=== PATIENT | male | born 1985 | race Caucasian/White ===

== ENCOUNTER → 2018-09-12 | Emergency (ER) | payer OTHER ==
[~2018-09-12] VITALS: Ht 172.7 cm; Wt 63.0 kg
[~2018-09-12] MED LIST: IBUP-1984 PO; LIDO20SO16 PO; NO HOME MEDS; PENI500T2 PO
[2018-09-12 10:50] VITALS: BP 126/90
== END | disposition home or self-care (01) ==
LOC: ER 10:37
DX: J02.0 Streptococcal pharyngitis (principal)
CPT/HCPCS: 99283

== ENCOUNTER 2021-10-01 11:34 | Emergency (ER) | payer SELFPAY ==
[~2021-10-01] VITALS: Ht 172.7 cm; Wt 68.2 kg
[~2021-10-01 11:34] MED LIST changes: -PENI500T2 PO
[2021-10-01 12:09] VITALS: BP 129/85
[2021-10-01] MEDS ORDERED: LIDOcaine 1.5% w/epinephrine 1:200,000 5ml ampul IJ ONE (12:15)
[2021-10-01] MEDS ORDERED: TETanus/Pertussis (Acell)/Diphther VAC/PF (Tdap-Adult) 0.5ml syringe IMVAC ONE (12:15)
[2021-10-01] MEDS ORDERED: lidocaine 1.5% w/epinephrine 1:200,000 10ml vial MPF IJ ONE (12:25)
[2021-10-01] MEDS ORDERED: LIDOcaine 1% w/epiNEPHrine 1:200,000 30ml vial IJ ONE (12:40)
[2021-10-01] MEDS ORDERED: CEPH250T PO (13:04)
== END 2021-10-01 13:37 | disposition home or self-care (01) ==
LOC: ER 11:35
DX: S81.812A Laceration without foreign body, left lower leg, initial encounter (principal); X58.XXXA Exposure to other specified factors, initial encounter; Y93.89 Activity, other specified; Y92.89 Other specified places as the place of occurrence of the external cause; Y99.8 Other external cause status
CPT/HCPCS: 12002; 73590; 90471; 90715; 99283

== ENCOUNTER 2021-10-14 11:35 | Emergency (ER) | payer OTHER ==
[~2021-10-14] VITALS: Ht 172.7 cm; Wt 65.0 kg
[2021-10-14 11:47] VITALS: BP 124/83
[2021-10-14] MEDS ORDERED: AMOX-422 PO (12:30)
== END 2021-10-14 12:48 | disposition home or self-care (01) ==
LOC: ER 11:35
DX: S81.812D Laceration without foreign body, left lower leg, subsequent encounter (principal); Z48.00 Encounter for change or removal of nonsurgical wound dressing; X58.XXXD Exposure to other specified factors, subsequent encounter
CPT/HCPCS: 99283